=== PATIENT | female | born 1995 | race African-American/Black ===

== ENCOUNTER 2024-10-22 00:43 | Emergency (ER) | payer MEDICAID, OTHER ==
[~2024-10-22] VITALS: Ht 165.1 cm; Wt 66.8 kg
[~2024-10-22 00:43] MED LIST: ALBU6.7H3
[2024-10-22 00:49] VITALS: BP 126/86; PULSE 62; RESP 16; TEMP 36.8; O2SAT 100
== END 2024-10-22 04:43 | disposition left against medical advice (07) ==
LOC: ER 00:43
DX: R07.89 Other chest pain (principal); R06.02 Shortness of breath; Z53.21 Procedure and treatment not carried out due to patient leaving prior to being seen by health care provider
CPT/HCPCS: 93005